=== PATIENT | male | born 1940 | race Caucasian/White ===

== ENCOUNTER → 2020-08-28 | Outpatient (CLI) | payer MEDICARE ==
[2020-08-28 13:29] LABS: BASOPHILS ABSOLUTE AUTO 0.06 K/mm3 (0.00-0.23); BASOPHILS PERCENT AUTO 1 % (0-2); EOSINOPHILS ABSOLUTE AUTO 0.18 K/mm3 (0.00-0.68); EOSINOPHILS PERCENT AUTO 3 % (0-6); Hematocrit 48.6 % (37.0-53.0); Hemoglobin 15.9 g/dL (13.5-17.5); IMMATURE GRAN ABSOLUTE AUTO 0.03 K/mm3 (0.00-0.10); IMMATURE GRAN PERCENT AUTO 1 % (0-1); LYMPHOCYTES ABSOLUTE AUTO 1.52 K/mm3 (0.84-5.20); LYMPHOCYTES PERCENT AUTO 26 % (21-46); MONOCYTES ABSOLUTE AUTO 0.59 K/mm3 (0.16-1.47); MONOCYTES PERCENT AUTO 10 % (4-13); Mean Corpuscular HGB 31.1 pg (26.0-34.0); Mean Corpuscular HGB Conc 32.7 g/dL (31.5-36.5); Mean Corpuscular Volume 95 fL (80-100); Mean Platelet Volume 12.4 fL (9.1-12.4); NEUTROPHILS ABSOLUTE AUTO 3.37 K/mm3 (1.96-9.15); NEUTROPHILS PERCENT AUTO 59 % (41-73); Platelet Count 137 K/mm3 (150-400); RDW Coefficient Variation 15.5 % (11.7-14.2); RDW Standard Deviation 54.5 fL (35.1-46.3); Red Blood Cell Count 5.11 M/mm3 (4.30-5.90); White Blood Cell Count 5.75 K/mm3 (4.00-11.30)
[2020-08-28 15:18] LABS: Alanine Aminotransfer (ALT/SGP 16 U/L (12-78); Albumin, Blood 2.5 g/dL (3.4-5.0); Albumin/Globulin Ratio 0.8 (0.8-1.8); Alk Phos 132 U/L (50-136); Anion Gap 5 mmol/L (6-16); Aspartate Aminotrans (AST/SGOT 26 U/L (12-37); Bilirubin, Total 1.3 mg/dL (0.1-1.0); Blood Urea Nitrogen 16 mg/dL (8-24); Bun/Creatinine Ratio 16.8 (12.0-20.0); CO2, Blood 31 mmol/L (21-32); Calcium, Blood 8.6 mg/dL (8.5-10.1); Chloride, Blood 102 mmol/L (98-108); Creatinine, Blood 0.95 mg/dL (0.60-1.20); Globulin, Blood 3.1 g/dL (2.2-4.0); Glomerular Filtration Rate >60 (60-); Glucose, Blood 96 mg/dL (70-99); Potassium, Blood 4.1 mmol/L (3.5-5.5); Sodium, Blood 138 mmol/L (136-145); Total Protein, Blood 5.6 g/dL (6.4-8.2)
== END | disposition home or self-care (01) ==
LOC: PLD 09:30 → LAB SHORT 09:30 → EDBD 09:30
PROVIDERS: Family Medicine
DX: E11.69 Type 2 diabetes mellitus with other specified complication (principal); Z76.89 Persons encountering health services in other specified circumstances
CPT/HCPCS: 80053; 83036; 85025

== ENCOUNTER 2020-12-14 10:53 | Inpatient (IN) | payer OTHER, MEDICARE ==
[~2020-12-14] VITALS: Ht 182.9 cm; Wt 170.0 kg
[2020-12-14 11:37] LABS: BASOPHILS ABSOLUTE AUTO 0.09 K/mm3 (0.00-0.23); BASOPHILS PERCENT AUTO 0 % (0-2); EOSINOPHILS ABSOLUTE AUTO 0.03 K/mm3 (0.00-0.68); EOSINOPHILS PERCENT AUTO 0 % (0-6); Hematocrit 48.9 % (37.0-53.0); Hemoglobin 16.7 g/dL (13.5-17.5); IMMATURE GRAN ABSOLUTE AUTO 0.15 K/mm3 (0.00-0.10); IMMATURE GRAN PERCENT AUTO 1 % (0-1); LYMPHOCYTES ABSOLUTE AUTO 2.19 K/mm3 (0.84-5.20); LYMPHOCYTES PERCENT AUTO 9 % (21-46); MONOCYTES ABSOLUTE AUTO 2.76 K/mm3 (0.16-1.47); MONOCYTES PERCENT AUTO 11 % (4-13); Mean Corpuscular HGB 32.1 pg (26.0-34.0); Mean Corpuscular HGB Conc 34.2 g/dL (31.5-36.5); Mean Corpuscular Volume 94 fL (80-100); Mean Platelet Volume 11.8 fL (9.1-12.4); NEUTROPHILS ABSOLUTE AUTO 19.09 K/mm3 (1.96-9.15); NEUTROPHILS PERCENT AUTO 79 % (41-73); Platelet Count 149 K/mm3 (150-400); RDW Coefficient Variation 15.2 % (11.7-14.2); RDW Standard Deviation 52.5 fL (35.1-46.3); White Blood Cell Count 24.31 K/mm3 (4.00-11.30)
[2020-12-14 12:42] LABS: Albumin, Blood 2.3 g/dL (3.4-5.0); Albumin/Globulin Ratio 0.6 (0.8-1.8); Bilirubin, Total 1.8 mg/dL (0.1-1.0); Bun/Creatinine Ratio 20.5 (12.0-20.0); Calcium, Blood 8.6 mg/dL (8.5-10.1); Creatinine, Blood 1.56 mg/dL (0.60-1.20); Globulin, Blood 4.1 g/dL (2.2-4.0); Potassium, Blood 5.5 mmol/L (3.5-5.5); Total Protein, Blood 6.4 g/dL (6.4-8.2); Troponin I 0.207 ng/mL (0.000-0.040)
[2020-12-14 12:45] LABS: Source, Urine Catheter
[2020-12-14 13:22] LABS: Appearance, Urine Clear (Clear); Blood, Urine 5+ (Neg); Color, Urine Amber (P-Yellow); Glucose Qualitative, Urine Neg (Neg); Ketones, Urine Neg (Neg); Leukocyte Esterase, Urine 1+ (Neg); Nitrite, Urine Neg (Neg); Protein, Urine 2+ (Neg); Specific Gravity, Urine 1.025 (1.003-1.022); Urobilinogen, Urine 2+ (Normal)
[2020-12-14] MEDS ORDERED: K-Dur10 MEQ PO (13:28)
[2020-12-14] MEDS ORDERED: ELIQUIS5 M3 PO (13:28)
[2020-12-14] MEDS ORDERED: ALLOPURINOL100 M1 PO (13:29)
[2020-12-14] MEDS ORDERED: METOPROLOL TART25 MG PO (13:29)
[2020-12-14] MEDS ORDERED: NYAMYC TOP (13:31)
[2020-12-14 13:44] LABS: SARS-Cov-2 (COVID-19) PCR, MMC NEGATIVE (NEGATIVE)
[2020-12-14 13:45] LABS: Bilirubin, Urine 1+ (Neg)
[2020-12-14 13:47] LABS: Bacteria Many /hpf; Red Blood Cells, Urine 50-100 /hpf (0-2); Squamous Epithelial Cells Few /hpf (Few)
[2020-12-14 13:48] LABS: Amorphous Light (0-Heavy); Mucus Light (0-Heavy)
[2020-12-14 13:49] LABS: Granular Casts 0-2 /lpf (0)
--- NOTE | 2020-12-15 05:32 | NUR ---
SHIFT SUMMARY ADMITTED LAST NIGHT FOR PNEUMONIA, UTI & PLEURAL EFFUSION. AOX4. VSS. SPO2 >90% ON 13L NONREBREATHER UPON ARRIVAL. RT PLACED PT ON CPAP c 3L O2 BLEED IN & SPO2 >90%. LS DIM. REPORTS SOB. DENIES N/V. REPORTS PAIN IN KNEES, DENIES NEED FOR PAIN MEDS. +2 EDEMA BLE. RECIEVING NS @150ML/HR. BEDREST, USES POWER W/C @BASELINE. CALL LIGHT IN REACH. WCTM UNTIL DAY NURSE ASSUMES CARE.
[2020-12-15 05:57] LABS: BASOPHILS ABSOLUTE AUTO 0.06 K/mm3 (0.00-0.23); BASOPHILS PERCENT AUTO 0 % (0-2); EOSINOPHILS PERCENT AUTO 0 % (0-6); Hematocrit 46.4 % (37.0-53.0); IMMATURE GRAN ABSOLUTE AUTO 0.13 K/mm3 (0.00-0.10); IMMATURE GRAN PERCENT AUTO 1 % (0-1); LYMPHOCYTES ABSOLUTE AUTO 1.96 K/mm3 (0.84-5.20); LYMPHOCYTES PERCENT AUTO 10 % (21-46); MONOCYTES PERCENT AUTO 13 % (4-13); Mean Corpuscular HGB 31.4 pg (26.0-34.0); Mean Corpuscular HGB Conc 32.3 g/dL (31.5-36.5); Mean Corpuscular Volume 97 fL (80-100); Mean Platelet Volume 10.8 fL (9.1-12.4); NEUTROPHILS ABSOLUTE AUTO 15.78 K/mm3 (1.96-9.15); NEUTROPHILS PERCENT AUTO 77 % (41-73); Platelet Count 211 K/mm3 (150-400); RDW Coefficient Variation 14.6 % (11.7-14.2); RDW Standard Deviation 53.1 fL (35.1-46.3); Red Blood Cell Count 4.77 M/mm3 (4.30-5.90); White Blood Cell Count 20.53 K/mm3 (4.00-11.30)
[2020-12-15 06:38] LABS: Magnesium, Blood 2.1 mg/dL (1.6-2.4)
[2020-12-15 06:46] LABS: Albumin/Globulin Ratio 0.5 (0.8-1.8); Bun/Creatinine Ratio 19.4 (12.0-20.0); Calcium, Blood 8.3 mg/dL (8.5-10.1); Creatinine, Blood 2.17 mg/dL (0.60-1.20); Globulin, Blood 3.7 g/dL (2.2-4.0); Phosphorus, Blood 6.6 mg/dL (2.5-4.9); Potassium, Blood 6.1 mmol/L (3.5-5.5); Total Protein, Blood 5.7 g/dL (6.4-8.2); Troponin I 0.514 ng/mL (0.000-0.040)
[2020-12-15 08:00] LABS: Bun/Creatinine Ratio 20.9 (12.0-20.0); Calcium, Blood 8.3 mg/dL (8.5-10.1); Creatinine, Blood 2.15 mg/dL (0.60-1.20); International Normalized Ratio 1.34; Potassium, Blood 5.9 mmol/L (3.5-5.5); Prothrombin Time Results 14.2 Sec (9.7-11.5)
--- NOTE | 2020-12-15 10:15 | NUR ---
Echocardiogram completed.
--- NOTE | 2020-12-15 14:37 | NUR ---
ADMIT: 12/14/20 DISCHARGE: DX: Pneumonia CC: Kbmurali THAIS CALL: RESIDENCE: home with spouse CAREGIVER: Carol Winters, Spouse, Luis Winters, Child, Bharti Persaud, Child, DX: Afib, COPD, HTN, DM-type 2, BENNETT DME: none CCM: none HOME HEALTH: [facility]- 07/2020 SUMMARY: (Admit: 12/14/20) 12/15/20- per chart review with Dr. Bingham, cardiology has been asked to consult due to abnormal cardiac lab values. Echo was ordered and thoracentisis. Karen from the [facility] called and stated that the pt if is going to need longer medical stay, pt is able to be transferred to the the [facility] in [place]. Notified Dr. Bingham of this and he spoke with the pt, the pt declined to be transferred out of area. There is no plan for d/c at this time. -nikole
[2020-12-15 16:44] LABS: Automated BF RBC Count 0.022 M/mm3 (0-0); Automated BF WBC Count 5.723 K/mm3 (0-999); Body Fluid WBC Count 5723 /mm3 (0-999); RBC Count, Body Fluid 22000 /mm3 (0-0)
[2020-12-15 16:46] LABS: pH, Body Fluid 7.5
[2020-12-15 16:52] LABS: Glucose, Body Fluid 90 mg/dL; Lactate Dehydrogenase, Body Fl 417 U/L; Protein, Body Fluid 3.3 g/dL
--- NOTE | 2020-12-15 18:21 | NUR ---
SUMMARY PT SITTING UP IN BED EATING DINNER, PT HAS BEEN PLEASANT AND COOPERATIVE T/O THE DAY, ON AND OFF THE CPAP NEEDED, ALBIN WELL, PT HAD A THORACENTESIS TODAY AND THEY TOOK OFF 1L OF FLUID, PT'S O2 TITRATED FROM 5L NC DOWN TO 2L NC AFTER PROCEDURE, CARDIOLOGY CONSULT AND NEPHROLOGY CONSULT, SPOKE WITH PT'S AND SON ON THE PHONE, NO COMPLAINTS, WILL CONT TO MONITOR
[2020-12-15 18:45] LABS: Total Cell Count, Body Fluid 100
[2020-12-15 18:46] LABS: Color, Body Fluid Red (None-Yellow)
[2020-12-15 18:48] LABS: Appearance, Body Fluid Hazy (Clear)
--- NOTE | 2020-12-15 21:01 | NUR ---
PT BOOD PRESSURE 81/49. THORACENTESIS TODAY. LOPRESSOR HELD. SOUP PERSON CALLED. NEW ORDERS GIVEN, REFER TO MAR.
--- NOTE | 2020-12-16 04:14 | NUR ---
SHIFT SUMMARY PT ADMITTED PNUE. AAOX3. PT BP LOW. MAINFRAME CONSULTANT MD AWARE. NEW ORDER GIVEN. NO OTHER CHANGES THROUGHOUT SHIFT.
[2020-12-16 05:33] LABS: BASOPHILS ABSOLUTE AUTO 0.04 K/mm3 (0.00-0.23); BASOPHILS PERCENT AUTO 0 % (0-2); EOSINOPHILS ABSOLUTE AUTO 0.07 K/mm3 (0.00-0.68); EOSINOPHILS PERCENT AUTO 1 % (0-6); Hematocrit 44.1 % (37.0-53.0); Hemoglobin 14.2 g/dL (13.5-17.5); IMMATURE GRAN ABSOLUTE AUTO 0.06 K/mm3 (0.00-0.10); IMMATURE GRAN PERCENT AUTO 1 % (0-1); LYMPHOCYTES ABSOLUTE AUTO 1.29 K/mm3 (0.84-5.20); LYMPHOCYTES PERCENT AUTO 11 % (21-46); MONOCYTES ABSOLUTE AUTO 1.71 K/mm3 (0.16-1.47); MONOCYTES PERCENT AUTO 15 % (4-13); Mean Corpuscular HGB 31.5 pg (26.0-34.0); Mean Corpuscular HGB Conc 32.2 g/dL (31.5-36.5); Mean Corpuscular Volume 98 fL (80-100); Mean Platelet Volume 10.6 fL (9.1-12.4); NEUTROPHILS ABSOLUTE AUTO 8.56 K/mm3 (1.96-9.15); NEUTROPHILS PERCENT AUTO 73 % (41-73); Platelet Count 170 K/mm3 (150-400); RDW Coefficient Variation 14.6 % (11.7-14.2); RDW Standard Deviation 53.4 fL (35.1-46.3); Red Blood Cell Count 4.51 M/mm3 (4.30-5.90); White Blood Cell Count 11.73 K/mm3 (4.00-11.30)
[2020-12-16 06:04] LABS: Albumin, Blood 1.8 g/dL (3.4-5.0); Anion Gap 6 mmol/L (6-16); Blood Urea Nitrogen 56 mg/dL (8-24); Bun/Creatinine Ratio 23.5 (12.0-20.0); CO2, Blood 26 mmol/L (21-32); Calcium, Blood 8.1 mg/dL (8.5-10.1); Chloride, Blood 99 mmol/L (98-108); Creatinine, Blood 2.38 mg/dL (0.60-1.20); Glomerular Filtration Rate 26 (60-); Glucose, Blood 90 mg/dL (70-99); Magnesium, Blood 2.3 mg/dL (1.6-2.4); Phosphorus, Blood 6.3 mg/dL (2.5-4.9); Potassium, Blood 5.8 mmol/L (3.5-5.5); Sodium, Blood 131 mmol/L (136-145)
--- NOTE | 2020-12-16 14:45 | NUR ---
Per chart review with Dr. Bingham, pt has slightly improved. There is no d/c plan at this time. -nikole
--- NOTE | 2020-12-16 14:49 | NUR ---
OPEN AREA NOTED TO PT'S BUTTOCKS WHILE CLEANING HIM AFTER A BM, WILL TAKE A PICTURE WHEN PT READY TO TURN AGAIN, PT DECLINES TO TURN FOR A PICTURE AT THIS TIME, CURRENTLY WAITING FOR A BARIATRIC BED, PT STATES IT IS UNCOMFORTABLE TO TURN IN THE REGULAR BED
--- NOTE | 2020-12-16 16:09 | NUR ---
PT MOVED TO ROOM 335, TELEMETRY NOTIFIED
--- NOTE | 2020-12-16 17:09 | NUR ---
SUMMARY PT SITTING UP IN BED TALKING ON THE PHONE, PT NOW IN A BARIATRIC BED AND A LIFT ROOM, PT HAS BEEN PLEASANT AND COOPERATIVE WITH CARE T/O THE DAY, ABLE TO VOID MORE OFTEN COMPARED WITH YESTERDAY, PT STILL SOB WITH ANY ACTIVITY BUT REPORTS BETTER THAN YESTERDAY, PT ABLE TO WORK WITH PT/OT, PT'S APPETITE BETTER TODAY WELL, NO ACUTE CHANGES, WILL CONT TO MONITOR
[2020-12-17 05:38] LABS: BASOPHILS ABSOLUTE AUTO 0.03 K/mm3 (0.00-0.23); BASOPHILS PERCENT AUTO 0 % (0-2); EOSINOPHILS PERCENT AUTO 1 % (0-6); Hematocrit 45.3 % (37.0-53.0); Hemoglobin 14.8 g/dL (13.5-17.5); IMMATURE GRAN ABSOLUTE AUTO 0.03 K/mm3 (0.00-0.10); IMMATURE GRAN PERCENT AUTO 0 % (0-1); LYMPHOCYTES ABSOLUTE AUTO 0.83 K/mm3 (0.84-5.20); LYMPHOCYTES PERCENT AUTO 12 % (21-46); MONOCYTES ABSOLUTE AUTO 1.22 K/mm3 (0.16-1.47); MONOCYTES PERCENT AUTO 17 % (4-13); Mean Corpuscular HGB 31.4 pg (26.0-34.0); Mean Corpuscular HGB Conc 32.7 g/dL (31.5-36.5); Mean Corpuscular Volume 96 fL (80-100); Mean Platelet Volume 10.6 fL (9.1-12.4); NEUTROPHILS PERCENT AUTO 69 % (41-73); Platelet Count 147 K/mm3 (150-400); RDW Coefficient Variation 14.6 % (11.7-14.2); RDW Standard Deviation 51.8 fL (35.1-46.3); Red Blood Cell Count 4.71 M/mm3 (4.30-5.90); White Blood Cell Count 7.21 K/mm3 (4.00-11.30)
[2020-12-17 06:13] LABS: Albumin, Blood 1.9 g/dL (3.4-5.0); Anion Gap 7 mmol/L (6-16); Blood Urea Nitrogen 61 mg/dL (8-24); Bun/Creatinine Ratio 30.5 (12.0-20.0); CO2, Blood 27 mmol/L (21-32); Calcium, Blood 8.5 mg/dL (8.5-10.1); Chloride, Blood 100 mmol/L (98-108); Glomerular Filtration Rate 32 (60-); Glucose, Blood 103 mg/dL (70-99); Magnesium, Blood 2.2 mg/dL (1.6-2.4); Phosphorus, Blood 4.8 mg/dL (2.5-4.9); Potassium, Blood 4.7 mmol/L (3.5-5.5); Sodium, Blood 134 mmol/L (136-145)
--- NOTE | 2020-12-17 06:22 | NUR ---
RECEIVED PATIENT IN BED AAOX3. HE DENIES ANY DISCOMFORT. O2 2L IN PLACE SATURATING AT 96%. ON CONTINUOUS PULSE OX. ASSISTED WITH ADLS. COMFORT AND SAFETY MEASURES PROVIDED. CPAP AT HS. NO RESPIRATORY DISTRESS NOTED.
--- NOTE | 2020-12-17 13:07 | NUR ---
per chart review with Dr. Bingham, plan is for the pt to stay in the hospital. His labs are improving. -nikole
--- NOTE | 2020-12-17 18:06 | NUR ---
SHIFT SUMMARY: NO ACUTE EVENTS. C/O PAIN WITH MOVEMENT. REQUIRES MAX ASSIST WITH ALL ADL'S. WEARING O2 @ 2 L/MIN NC, CPAP WHEN SLEEPING WITH O2 2 L BLED IN. CONTINUOUS OXIMETRY SHOWS SATS 89-93%. NO EVENTS ON TELEMETRY, AFIB WITH RATE 80-90'S AT REST, 110'S WITH EXERTION OR DESATURATION. POOR APPETITE TODAY, DID NOT WANT LUNCH OR DINNER. IV SALINE LOCK INFILTRATED, POWERGLIDE PLACED FOR BETTER ACCESS.
--- NOTE | 2020-12-18 03:08 | NUR ---
RECEIVED PATIENT IN BED AAO. HE DENIES ANY DISCOMFORT. ON O2 2 L NC SATURATING AT 94%. ON CONTINUOUS PULSE OX. BILATERAL LEGS WITH PITTING EDEMA AND TENDER TO TOUCH. A-FIB ON TELE. TOLERATING C-PAP AT HS. ADLS PROVIDED. SAFETY AND COMFORT MEASURES MAINTAINED. POWERGLIDE TO LUE WITH DSG DRY ANDINTACT. NO CHANGES IN STATUS NOTED.
[2020-12-18 05:28] LABS: BASOPHILS ABSOLUTE AUTO 0.04 K/mm3 (0.00-0.23); BASOPHILS PERCENT AUTO 1 % (0-2); EOSINOPHILS PERCENT AUTO 2 % (0-6); Hematocrit 44.2 % (37.0-53.0); Hemoglobin 14.6 g/dL (13.5-17.5); IMMATURE GRAN ABSOLUTE AUTO 0.03 K/mm3 (0.00-0.10); IMMATURE GRAN PERCENT AUTO 1 % (0-1); LYMPHOCYTES ABSOLUTE AUTO 0.97 K/mm3 (0.84-5.20); LYMPHOCYTES PERCENT AUTO 15 % (21-46); MONOCYTES ABSOLUTE AUTO 1.08 K/mm3 (0.16-1.47); MONOCYTES PERCENT AUTO 17 % (4-13); Mean Corpuscular HGB 31.3 pg (26.0-34.0); Mean Corpuscular Volume 95 fL (80-100); Mean Platelet Volume 10.8 fL (9.1-12.4); NEUTROPHILS ABSOLUTE AUTO 4.32 K/mm3 (1.96-9.15); NEUTROPHILS PERCENT AUTO 66 % (41-73); Platelet Count 144 K/mm3 (150-400); RDW Coefficient Variation 14.7 % (11.7-14.2); RDW Standard Deviation 51.5 fL (35.1-46.3); Red Blood Cell Count 4.67 M/mm3 (4.30-5.90); White Blood Cell Count 6.54 K/mm3 (4.00-11.30)
[2020-12-18 05:57] LABS: Albumin, Blood 1.5 g/dL (3.4-5.0); Anion Gap 6 mmol/L (6-16); Blood Urea Nitrogen 55 mg/dL (8-24); Bun/Creatinine Ratio 34.4 (12.0-20.0); CO2, Blood 32 mmol/L (21-32); Calcium, Blood 8.5 mg/dL (8.5-10.1); Chloride, Blood 99 mmol/L (98-108); Glomerular Filtration Rate 42 (60-); Glucose, Blood 100 mg/dL (70-99); Magnesium, Blood 1.8 mg/dL (1.6-2.4); Phosphorus, Blood 3.5 mg/dL (2.5-4.9); Potassium, Blood 3.8 mmol/L (3.5-5.5); Sodium, Blood 137 mmol/L (136-145)
--- NOTE | 2020-12-18 14:57 | NUR ---
SKIN BREAKDOWN: JUST SPOKE WITH PATIENT'S SPOUSE (ROC) WHO WANTED TO INFORM THE STAFF THAT THE PATIENT "HAS SOME SORES ON HIS BOTTOM" AND WANTED TO MAKE SURE THEY WERE BEING ADDRESSED. I INFORMED HER OF THE CARE PLAN TO TURN THE PATIENT Q2 HOURS AND THAT HE IS ON A BARIATRIC BED WITH A SPECIALTY MATTRESS AT THIS TIME. ROC STATED THAT THEY HAVE BEEN TRYING TO ADDRESS THE BED SORES AT HOME FOR SOME TIME NOW BUT HAVEN'T HAD MUCH LUCK.
--- NOTE | 2020-12-18 17:58 | NUR ---
SHIFT SUMMARY NO ACUTE CHANGES NOTED TO PT THIS SHIFT. PT IS AAOX3, ABLE TO MAKE NEEDS KNOWN. FORGEFUL AND ANXIOUS AT TIMES. NO C/O PAIN OR ANY DISCOMFORT THIS SHIFT. PT CONTINUES ON O2 2LPM VIA NC. SATS 90-93%. PT IS CONTINENT/INCONTINENT, ABLE TO USE URINAL WITH ASSISTANCE. DENIES DYSURIA. PT ON IV ABX ORDERED, NO ASE NOTED. PT REQUIRES 2P MAX ASSIST WITH BED MOBILITY. BED AT LOWEST POSITION. CALL LIGHT WITHIN REACH.
[2020-12-19 05:29] LABS: Hematocrit 45.6 % (37.0-53.0)
[2020-12-19 05:57] LABS: Albumin, Blood 1.6 g/dL (3.4-5.0); Anion Gap 6 mmol/L (6-16); Blood Urea Nitrogen 56 mg/dL (8-24); Bun/Creatinine Ratio 35.4 (12.0-20.0); CO2, Blood 35 mmol/L (21-32); Calcium, Blood 8.8 mg/dL (8.5-10.1); Chloride, Blood 99 mmol/L (98-108); Creatinine, Blood 1.58 mg/dL (0.60-1.20); Glomerular Filtration Rate 42 (60-); Glucose, Blood 113 mg/dL (70-99); Magnesium, Blood 1.8 mg/dL (1.6-2.4); Phosphorus, Blood 3.7 mg/dL (2.5-4.9); Potassium, Blood 3.8 mmol/L (3.5-5.5); Sodium, Blood 140 mmol/L (136-145)
--- NOTE | 2020-12-19 06:14 | NUR ---
SHIFT SUMMARRY PATIENT SLEP MOST OF THE NIGHT. COMPLAINED OF DISCOMFORT AT BEGINNING OF SHIFT. DENIED FULL DOSE OF PRN TYLENOL AND ONLY RECIEVED 325MG WITH GOOD EFFECTS. ASKED FOR STRONGER PAIN MED FOR BOTTOM PAIN. DID NOT NEED IT THIS SHIFT. NO ACUTE MEDICAL CHANGE THIS SHIFT. O2 SATS REMAIN IN THE MID TO UPPER 90S ON CPAP
--- NOTE | 2020-12-19 13:53 | NUR ---
Conversation with the providers, Dr. Bingham and Dr. Bergeron about Magnesium and potassium medications. The providers agreed that the patient should continue to recieve potassium and magnesium becuase of the Bumex.
--- NOTE | 2020-12-19 18:32 | NUR ---
Shift Summary, The patient is A/OX4 to person, place, time and event. He is bed dependent. He is continent and requires assistence using the urinal and bed lance. He has urinated multiple times throughout the day about 150-200ml per event. The patient did not eat his dinner and only wanted water. He was offered different meal options and refused. He only wanted water. The patient did voice concerns about being able to walk again and concerns about his labs returning to normal.The patient is a two person assist to roll and reposition. Currently, he is lying in his bed resting.
--- NOTE | 2020-12-20 04:28 | NUR ---
SHIFT SUMMARY- PT. A&OX2, FORGETFUL, ON BEDREST. 3L NC DURING THE NIGHT, SATS MAINTAINED >90%. PT. HAD NO COMPLAINTS OF PAIN OR DISCOMFORT. REPOSITIONED FOR COMFORT/PRN, ATTENDS IN PLACE. SLEPT T/O THE NIGHT, NO APPARENT DISTRESS NOTED. CALL LIGHT WITHIN REACH, SIDE RAILS UP, AND BED IN LOW POSITION. WILL CONT TO MONITOR.
[2020-12-20 04:30] LABS: Hematocrit 49.9 % (37.0-53.0); Hemoglobin 15.8 g/dL (13.5-17.5)
[2020-12-20 04:54] LABS: Albumin, Blood 1.7 g/dL (3.4-5.0); Anion Gap 3 mmol/L (6-16); Blood Urea Nitrogen 53 mg/dL (8-24); Bun/Creatinine Ratio 33.3 (12.0-20.0); CO2, Blood 35 mmol/L (21-32); Chloride, Blood 100 mmol/L (98-108); Creatinine, Blood 1.59 mg/dL (0.60-1.20); Glomerular Filtration Rate 42 (60-); Glucose, Blood 110 mg/dL (70-99); Phosphorus, Blood 4.8 mg/dL (2.5-4.9); Potassium, Blood 4.4 mmol/L (3.5-5.5); Sodium, Blood 138 mmol/L (136-145)
--- NOTE | 2020-12-20 08:10 | NUR ---
The patient mentation was odd this AM and he was unable to responde to questions. A/OX0 person, place time and event. The provider was notified and he asses the patient, the CPAP was placed on the patient and his mentation returned and he was A/OX4 to person, place, time and event.
--- NOTE | 2020-12-20 20:11 | NUR ---
Shift Summary, The patient is A/OX4 to person, place, time and event. The patient has been cooperative and pleasent. He is bed ridden and requires two people to help him adjust in the bed R/T obesity. The patient uses the call light to let people know he needs to use the urinal or bedpan. The patient had some changes in mentation today r/t not using his CPAP last night and the issue was resolved after using the CPAP. The patient has been on 2lpm NC and coarse sounds in lower lobes. The patient denies SOB or chest pain. He was able to remove the o2 for a time this afternoon and his SPO2 >94% but the patient requested the o2 be put back on and he is currently on 2lpm NC. His diet has been poor today because he slept though breakfast and did not want lunch. He was encouraged to eat but he stated he was not hungry. The patient is currenly lying in bed resting.
--- NOTE | 2020-12-21 04:37 | NUR ---
SHIFT SUMMARY- PT. A&O T/O THE NIGHT, ABLE TO MAKE NEEDS KNOWN. CPAP IN PLACE DURING THE NIGHT, SATS MAINTAINED AND VSS. MEDICATED FOR C/O BOTTOM PAIN 1X LAST NIGHT, REPORTED GOOD RELIEF. SLEPT T/O MOST OF THE NIGHT, NO APPARENT DISTRESS NOTED. CALL LIGHT WITHIN REACH AND SIDE RAILS UP. WILL CONT TO MONITOR.
[2020-12-21 05:16] LABS: Hematocrit 45.8 % (37.0-53.0); Hemoglobin 14.6 g/dL (13.5-17.5)
[2020-12-21 05:49] LABS: Albumin, Blood 1.5 g/dL (3.4-5.0); Anion Gap 4 mmol/L (6-16); Blood Urea Nitrogen 62 mg/dL (8-24); Bun/Creatinine Ratio 35.6 (12.0-20.0); CO2, Blood 35 mmol/L (21-32); Calcium, Blood 8.7 mg/dL (8.5-10.1); Chloride, Blood 99 mmol/L (98-108); Creatinine, Blood 1.74 mg/dL (0.60-1.20); Glomerular Filtration Rate 38 (60-); Glucose, Blood 90 mg/dL (70-99); Magnesium, Blood 1.9 mg/dL (1.6-2.4); Phosphorus, Blood 3.4 mg/dL (2.5-4.9); Potassium, Blood 4.3 mmol/L (3.5-5.5); Sodium, Blood 138 mmol/L (136-145)
--- NOTE | 2020-12-21 20:10 | NUR ---
PT IS A/OX3, PLEASANT AND COOPERATIVE, THE PT WAS UP WITH THE LIFT TODAY AND SAT IN THE RECLINER FOR A COUPLE OF HOURS, THE PT IS ON 02 @ 3L/MIN O2 SATS >90%. PT WAS REPOSITIONED T/O THE DAY. PT HAD A POOR APPETITE TODAY. PT IS ON AN AIR BED. CALL LIGHT IN REACH
[2020-12-22 06:20] LABS: BASOPHILS ABSOLUTE AUTO 0.08 K/mm3 (0.00-0.23); BASOPHILS PERCENT AUTO 1 % (0-2); EOSINOPHILS ABSOLUTE AUTO 0.32 K/mm3 (0.00-0.68); EOSINOPHILS PERCENT AUTO 4 % (0-6); Hematocrit 44.5 % (37.0-53.0); Hemoglobin 14.5 g/dL (13.5-17.5); IMMATURE GRAN ABSOLUTE AUTO 0.06 K/mm3 (0.00-0.10); IMMATURE GRAN PERCENT AUTO 1 % (0-1); LYMPHOCYTES ABSOLUTE AUTO 1.16 K/mm3 (0.84-5.20); LYMPHOCYTES PERCENT AUTO 13 % (21-46); MONOCYTES ABSOLUTE AUTO 1.03 K/mm3 (0.16-1.47); MONOCYTES PERCENT AUTO 11 % (4-13); Mean Corpuscular HGB 31.3 pg (26.0-34.0); Mean Corpuscular HGB Conc 32.6 g/dL (31.5-36.5); Mean Corpuscular Volume 96 fL (80-100); Mean Platelet Volume 10.6 fL (9.1-12.4); NEUTROPHILS ABSOLUTE AUTO 6.38 K/mm3 (1.96-9.15); NEUTROPHILS PERCENT AUTO 71 % (41-73); Platelet Count 166 K/mm3 (150-400); RDW Coefficient Variation 14.8 % (11.7-14.2); Red Blood Cell Count 4.63 M/mm3 (4.30-5.90); White Blood Cell Count 9.03 K/mm3 (4.00-11.30)
[2020-12-22 06:32] LABS: Albumin, Blood 1.5 g/dL (3.4-5.0); Anion Gap 3 mmol/L (6-16); Blood Urea Nitrogen 64 mg/dL (8-24); Bun/Creatinine Ratio 39.5 (12.0-20.0); CO2, Blood 35 mmol/L (21-32); Calcium, Blood 8.9 mg/dL (8.5-10.1); Chloride, Blood 101 mmol/L (98-108); Creatinine, Blood 1.62 mg/dL (0.60-1.20); Glomerular Filtration Rate 41 (60-); Glucose, Blood 102 mg/dL (70-99); Phosphorus, Blood 2.4 mg/dL (2.5-4.9); Potassium, Blood 3.9 mmol/L (3.5-5.5); Sodium, Blood 139 mmol/L (136-145)
--- NOTE | 2020-12-22 07:42 | NUR ---
SHIFT SUMMARY PATIENT ALERT AND ORIENTED. HAD NO COMPLAINTS OF PAIN OR SHORTNESS OF BREATH. NO ACUTE ISSUES NOTED OVERNIGHT. CALL LIGHT WITHIN REACH. REPORT GIVEN TO ONCOMING RN.
--- NOTE | 2020-12-22 13:56 | NUR ---
per chart review with Dr. Poole, pt is not stable for discharge at this time. Per PT and OT notes, they are recommending home health. Spoke with Karen, communications planner at the [facility], she reports that the pt is not service connected however, we can order home health services through his PCP at the [facility] ([facility]). Packet will be faxed to Lashawn Truong RN for PCP [phone] for home health services when applicable.
--- NOTE | 2020-12-22 17:44 | NUR ---
NO ACUTE CHANGES. PT AOX3 AND COOPERATIVE OF CARE. PT CONTINUES TO HAVE A LOT OF ANXIETY AND USES CALL LIGHT EXCESSIVELY. PT TREATED FOR PAIN PER EMAR. PT WAS LIFTED INTO RECLINER TO WORK WITH PHYSICAL THERAPY AND OT. PT CONTINUES TO HAVE REDNESS IN GROIN AND COCCYX AREA WHICH IS BEING TREATED PER EMAR. CALL LIGHT IS WITHIN REACH WILL CONTINUE TO MONITOR.
--- NOTE | 2020-12-23 05:19 | NUR ---
SHIFT SUMMARY PATIENT HAD NO ACUTE CHANGES OBSERVED. AXOX 3 AND BEDREST/LIFT PATIENT. TAKES MEDICATION CRUSHED IN APPLESAUCE. PIV REMAINS INTACT. [facility] LIFT MECHANIC REPORTS A-FIB 73. ON 2L O2 NC. USES CPAP SETUP BY RT WITH 5L O2 BLEED IN AT NIGHT. VSS/AFEBRILE. DENIES PAIN, SOB, AND N/V. CALL LIGHT IN REACH. BED IN LOWEST POSITION. WILL CONTINUE TO MONITOR UNTIL DAY SHIFT NURSE ASSUMES CARE.
[2020-12-23 05:56] LABS: Hematocrit 45.3 % (37.0-53.0); Hemoglobin 14.7 g/dL (13.5-17.5)
[2020-12-23 06:19] LABS: Albumin, Blood 1.5 g/dL (3.4-5.0); Anion Gap 2 mmol/L (6-16); Blood Urea Nitrogen 59 mg/dL (8-24); Bun/Creatinine Ratio 39.6 (12.0-20.0); CO2, Blood 37 mmol/L (21-32); Calcium, Blood 8.7 mg/dL (8.5-10.1); Chloride, Blood 101 mmol/L (98-108); Creatinine, Blood 1.49 mg/dL (0.60-1.20); Glomerular Filtration Rate 45 (60-); Glucose, Blood 118 mg/dL (70-99); Magnesium, Blood 1.9 mg/dL (1.6-2.4); Potassium, Blood 3.6 mmol/L (3.5-5.5); Sodium, Blood 140 mmol/L (136-145)
--- NOTE | 2020-12-23 10:44 | NUR ---
Spoke with on the phone. She reports that she has not had an update from a provider in a couple of days. Requested that Dr. Poole reach out to her. Discussed with her his caregiver situation and home health for when he goes home. Pt will need wheelchair transport (transport will need to bring a wheelchair) and help get him into the home. [facility] to order and set up home health services. states that they use [facility]. ([email or web address], 10:44 AM)
[2020-12-23] MEDS ORDERED: ATOR40TA PO (13:45)
[2020-12-23] MEDS ORDERED: BUME2 PO (13:46)
[2020-12-23] MEDS ORDERED: OXAYDO5 M1 PO (13:47)
[2020-12-23] MEDS ORDERED: VITAMIN D31000 UNI1 PO (13:48)
[2020-12-23] MEDS ORDERED: COENZYME Q10200 MG PO (13:49)
--- NOTE | 2020-12-23 16:19 | NUR ---
DISCHARGE PATIENT TRANSPORTED VIA WHEELCHAIR TO [facility]. DISCHARGE INSTRUCTIONS EXPLAINED TO PATIENT. PATIENT STATED UNDERSTANDING. PACKET SENT WITH PATIENT. MEDICATIONS FAXED TO PREFERRED PHARMACY. FOLLOW UP APPOINTMENT SCHEDULED. BELONGINGS SENT WITH PATIENT. POWERGLIDE IV REMOVED WITHOUT DIFFICULTY. TELE REMOVED WITHOUT DIFFICULTY.
== END 2020-12-23 16:15 | disposition home health service (06) | DRG 871 ==
LOC: ER 10:53 → ERHOLD 18:35 → MEDS 18:35
PROVIDERS: Emergency Medicine; Family Medicine; Internal Medicine Nephrology; ADMIT Family Medicine
PROC: 5A09457 Assistance with Respiratory Ventilation, 24-96 Consecutive Hours, Continuous Positive Airway Pressure (ICD-10-PCS; 2020-12-14)
PROC: 0W993ZZ Drainage of Right Pleural Cavity, Percutaneous Approach (ICD-10-PCS; principal; 2020-12-15)
DX: A41.9 Sepsis, unspecified organism (principal); J18.9 Pneumonia, unspecified organism; I21.A1 Myocardial infarction type 2; J96.21 Acute and chronic respiratory failure with hypoxia; N39.0 Urinary tract infection, site not specified; I48.20 Chronic atrial fibrillation, unspecified; J44.0 Chronic obstructive pulmonary disease with (acute) lower respiratory infection; N17.9 Acute kidney failure, unspecified; Z68.42 Body mass index [BMI] 45.0-49.9, adult; N25.81 Secondary hyperparathyroidism of renal origin; I13.0 Hypertensive heart and chronic kidney disease with heart failure and stage 1 through stage 4 chronic kidney disease, or unspecified chronic kidney disease; E87.1 Hypo-osmolality and hyponatremia; E66.2 Morbid (severe) obesity with alveolar hypoventilation; J91.8 Pleural effusion in other conditions classified elsewhere; Z20.822 Contact with and (suspected) exposure to COVID-19; E87.5 Hyperkalemia; N18.9 Chronic kidney disease, unspecified; L89.301 Pressure ulcer of unspecified buttock, stage 1; E78.5 Hyperlipidemia, unspecified; D63.1 Anemia in chronic kidney disease; E88.09 Other disorders of plasma-protein metabolism, not elsewhere classified; I50.9 Heart failure, unspecified; M10.9 Gout, unspecified; Z88.0 Allergy status to penicillin; Z88.1 Allergy status to other antibiotic agents; Z79.01 Long term (current) use of anticoagulants; Z79.899 Other long term (current) drug therapy; Z99.3 Dependence on wheelchair; Z74.01 Bed confinement status
CPT/HCPCS: 32555; 36415; 71045; 74176; 80048; 80053; 80069; 81001; 82945; 83605; 83615; 83735; 83880; 83986; 84100; 84145; 84156; 84157; 84484; 85014; 85018; 85025; 85610; 85730; 87040; 87070; 87077; 87086; 87186; 87205; 89051; 93005; 93010; 93306; 94660; 94762; 96365; 96366; 96367; 97110; 97162; 97166; 97530; 97535; 99285-25; A9270; C1751; J0456; J0696; J1956; J3475; J3480; J7030; J7050; J7060; U0004